=== PATIENT | male | born 1960 | race Caucasian/White ===

== ENCOUNTER → 2019-06-07 11:17 | Outpatient (BNVA) | payer BC, SELFPAY | PROVIDERS: PCP Nurse Practitioner Family; Referring Provider Nurse Practitioner Family; Visit Provider Specialist | DX: G56.03 Carpal tunnel syndrome, bilateral upper limbs (principal) | CPT/HCPCS: 95910 ==

== ENCOUNTER 2019-07-14 07:53 | Day surgery (SDC) | payer BC, SELFPAY ==
[2019-07-13 15:08] VITALS: BMI 27.6
[2019-07-14] VITALS (7 sets, daily range): BP systolic 113–138; BP diastolic 70–88; PULSE 61–89; RESP 10–18; TEMP 36.5–36.8; O2SAT 97–100
[2019-07-14] MEDS: sodium chloride 0.9% 1,000 ML 30 ML IV (08:18)
[2019-07-14 08:19] LABS: Glucose Point of Care 165 mg/dL (70-110)
--- NOTE | 2019-07-14 08:24 | ANES.PREANE2 ---
Pre-Anesthetic Assessment Pre-Anesthetic Assessment: Height/Weight: Height 1.83 m Weight 92.533 kg Preop Diagnosis: Left carpal and cubital tunnel Proposed Procedure: Operation Date: 07/14/19 09:20 Proposed Procedures p Carpal Tunnel Release [id number] G56.02 G56.22(Left) - Chava Delgadillo DO s [place] Nerve Decompression Verusus Transposition(Left) - Chava Delgadillo DO Last intake: Intake Last Liquid Date 07/13/19 Last Liquid Time 20:00 Last Solid Date 07/13/19 Last Solid Time 20:00 Social: Social History: Alcohol (occ) and Tobacco (chews) Exam: Pre-Anes Outpt Exam: alert, oriented x 3, clear to auscultation bilaterally and regular rate & rhythm Airway: Submandibular: WNL Cervical ROM: WNL MP: 1 Dentition: False (upper and lower) History/ROS: No significant history except as noted Pulmonary: Pulmonary: None reported CV/HEM: CV/HEM: HTN : : None reported Hepatic: Hepatic: None reported GI: GI: None reported Metabolic: Metabolic: DM and Hyperlipidemia Musc/skel: Musc/skel: OA/DJD Neuropsych: Neuropsych: Neuropathy (Left arm) Anesthetic Plan: ASA status: 3 Anesthesia: Anesthesia Evaluation and General Risk of > 500 ml blood loss (7ml/kg in children): No Meds/Allergies Current Medications: Current Medications Generic Name Dose Route Start Last Admin Trade Name Freq PRN Reason Stop Dose Admin Sodium Chloride 1,000 mls @ 30 ml s/hr 07/14/19 08:15 07/14/19 08:18 Sodium Chloride 0.9% IV 07/15/19 08:14 30 mls/hr .Q24H KEIRA Administration PFSH Anesthesia PFSH: Medical History Cholecystectomy planned (~2003) Diabetes Hyperlipemia Hypertension Family History Mother Diabetes Father Diabetes Denies family history of CAD (coronary artery disease) Clotting disorder Chronic kidney disease (CKD) Anesthesia complication Bleeding disorder Cancer Social History Smoking and tobacco status: former smoker Second hand smoke exposure: Yes Alcohol intake: former Household members: children Marital status: Single Data Anesthesia Other Labs: Laboratory Results - last 48 hr 07/14/19 08:15 POC Glucose 165 Cardiac Studies: No Data to Display
--- NOTE | 2019-07-14 09:06 | W.PM.OPSUD ---
Surgery/Procedure H&P Update DATE OF PROCEDURE: July 14, 2019 DATE H&P PERFORMED: 07/08/19 H&P UPDATE INFORMATION: I have reviewed H&P completed within last 30 days and No changes to prior documentation PREOP DIAGNOSIS: Left carpal and cubital tunnel PRIMARY INDICATION FOR PROCEDURE: as above PLANNED PROCEDURE: Operation Date: 07/14/19 09:20 Proposed Procedures p Carpal Tunnel Release [id number] G56.02 G56.22(Left) - DO luís Santiago [place] Nerve Decompression Verusus Transposition(Left) - Chava Delgadillo DO
--- NOTE | 2019-07-14 09:07 | P.OP_ITS ---
Operative Report Date of procedure: July 14, 2019 Pre-op Diagnosis: Left carpal and cubital tunnel Post-op diagnosis: same Procedure Done: Decompression left carpal tunnel Decompression left cubital tunnel Pathology: none sent Surgeon: Chava Delgadillo Anesthesia: General Estimated blood loss (mL): 5 Tourniquet time (min): 36 Tourniquet time: At 250 mmHg pressure Complications: No apparent complications Findings: Very thick palmar fascia and transverse carpal ligament with tight carpal tunnel Tight and thickened interested cubital tunnel. Following decompression no tendency of the ulnar nerve to subluxate from behind medial humeral epicondyle Condition: stable Disposition: PACU Brief History: 59-year-old white male with bilateral complaints of hand pain and numbness left greater than right. Clinical examination suggestive of bilateral carpal and cubital tunnel syndromes. Patient is undergone EMG and nerve conduction velocity studies that are consistent with bilateral carpal tunnel and cubital tunnel syndromes with slowing of the median and ulnar nerves at the wris t and elbow respectively. He is failed conservative therapy. He is brought in today for elective decompression of the left carpal tunnel and ulnar nerve at the elbow to be followed in a staged fashion later once he is recovered sufficiently to undergo right carpal tunnel decompression as well as right cubital tunnel decompression Procedure: 1.5 g Zinacef Patient identified. Surgical sites are signed. Surgical permit signed. Patient received 1.5 g of Zinacef IV for surgical prophylaxis. Patient was taken to the Operating Room. Patient was transferred to the Operating Room table. Patient is placed supine on the OR table.. Patient placed under general anesthesia without difficulty. Patient was then sterilely prepped and draped in usual fashion using a sterile tourniquet. A 4cm palmar incision was made. Dissection carried down through skin subcutaneous tissue. We incised the transverse carpal ligament. The transverse carpal ligament was undermined proximally. The wrist was extended and then using a pushing scissors technique, the proximal extent of the transverse carpal ligament was divided. We verified the release was complete. Using scissors technique dissection, we released the distal extent of the transverse carpal ligament and the deep layer of the palmar fascia to the level of the superficial palmar arch. The median nerve was identified as well as the recurrent branch that was preserved. No other pathology noted in the carpal tunnel. Once again, we verified the release was complete. The wound was irrigated with sterile saline containing Betadine and sterile saline containing antibiotic solution. Skin closure was performed with interrupted sutures of 4-0 nylon. Attention was turned to the medial aspect of the operative elbow. A 6 cm curvilinear incision was made centered between the olecranon process and the medial humeral epicondyle. Full-thickness skin flaps were made with a skin knife. Crossing veins were coagulated with electrocautery. Scissors dissection was used to deepen the incision. Self-retaining retractors were put into place. The brachial fascia was opened using careful scissors dissection and the underlying ulnar nerve identified. The brachial fascia was released for several centimeters proximal to the cubital tunnel. No extrinsic compression on the ulnar nerve was appreciated proximally passing a hemostat beneath the skin and above the ulnar nerve. Dissection was continued distally using careful scissors dissection being careful to preserve cutaneous nerves as possible. Dec ompression of the ulnar nerve is taken several centimeters distal to the area of maximal compression at the area of Cope's fascia. Using a hemostat distally there is no evidence of distal compression into the proximal forearm. A subtle hourglass deformity of the ulnar nerve was identified at the area of maximal compression at the beginning of Cope's fascia. The nerve was now entirely decompressed. The elbow was placed through a range of motion. There is no tendency for the decompressed ulnar nerve to subluxate from behind the medial humeral epicondyle. For this reason no anterior transposition was performed. The wound was irrigated with Betadine-containing saline solution and antibiotic containing saline solution. The wound was closed in layers using 4-0 nylon on skin. The 2 incisions were injected with a total of 20 mL of a one-to-one mixture of 1% lidocaine and half percent Marcaine with epinephrine for postoperative analgesia. Dressings were applied which included: triple antibiotic ointment, Telfa, 4 x 4s, sterile cast padding, followed by a 5 x 30 plaster sheets 12 sheets in thickness to create an above elbow splint which was overwrapped with 3 and 4-inch ERNESTO wraps. The tourniquet was deflated during application of dressings. Patient tolerated the procedure well. Patient was taken to the recovery room. All counts were correct.
[2019-07-14] MEDS: cefUROXime 1,500 MG in sodium chloride 0.9% (plus) 50 ML 100 MG IV (09:09)
[2019-07-14] MEDS: neomycin-poly-bacitracin oint 28 gm 1 APPLIC TOPICAL (10:04)
== END 2019-07-14 11:25 | disposition home or self-care (01) ==
PROVIDERS: PCP Nurse Practitioner Family; Visit Provider Orthopaedic Surgery
PROC: (CPT 64721; principal; 2019-07-14 09:00)
PROC: (CPT 64718; 2019-07-14 09:00)
DX: G56.02 Carpal tunnel syndrome, left upper limb (principal); G56.22 Lesion of ulnar nerve, left upper limb; I10 Essential (primary) hypertension; E78.5 Hyperlipidemia, unspecified; M19.90 Unspecified osteoarthritis, unspecified site; E11.40 Type 2 diabetes mellitus with diabetic neuropathy, unspecified; Z82.49 Family history of ischemic heart disease and other diseases of the circulatory system; Z83.3 Family history of diabetes mellitus; Z79.82 Long term (current) use of aspirin; Z87.891 Personal history of nicotine dependence
CPT/HCPCS: 64718; 64721; 12345; 36416; 82962; 96365; J0697; J1100; J1580; J2001; J2250; J2405; J2704; J3010; J3490; J7030

== ENCOUNTER 2019-07-20 10:48 | Outpatient (CLI) | payer BC, SELFPAY | END 2019-07-20 10:49 | disposition home or self-care (01) | LOC: SPT 10:48 | PROVIDERS: PCP Nurse Practitioner Family; Visit Provider Orthopaedic Surgery | DX: Z46.89 Encounter for fitting and adjustment of other specified devices (principal); G56.02 Carpal tunnel syndrome, left upper limb; Z98.890 Other specified postprocedural states | CPT/HCPCS: L3908 ==

== ENCOUNTER → 2024-02-17 10:51 | Outpatient (BNVA) | payer MEDICAID, SELFPAY | PROVIDERS: PCP Family Medicine; Visit Provider Family Medicine | DX: E11.9 Type 2 diabetes mellitus without complications (principal) | CPT/HCPCS: 80053; 80061; 82607; 83036; 83721; 84443 ==

== ENCOUNTER 2024-02-26 14:07 | Outpatient (CLI) | payer MEDICAID, SELFPAY ==
--- NOTE | 2024-02-26 14:30 | US_ITS ---
WS: [id number] ULTRASOUND SOFT TISSUES posterior LEFT neck mass. HISTORY: growingsoftball sized mass on upper mid-back, suspect lipoma COMPARISON: None available. TECHNIQUE: 2-D and color Doppler imaging is submitted. Ultrasound is directed over the posterior LEFT neck. There is an intermediate echogenicity mass displ acing the subcutaneous soft tissues and the fascia surrounding the muscles. Due to the large size of the mass it is incompletely visualized and included on this examination. This mass measures over a le ngth of 10.5 cm x 6.7 x 3.9 cm. No increased vascularity. US/US soft tissue/extremity [id number] IMPRESSION: Large intermediate signal mass along the posterior RIGHT neck. This is most con sistent with a lipoma. This mass is incompletely included due to its large size . If further evaluation is necessary MRI with and without contrast may be of be nefit.
== END 2024-02-26 14:08 | disposition home or self-care (01) ==
LOC: RAD 14:08
PROVIDERS: PCP Family Medicine; Visit Provider Family Medicine
DX: R22.2 Localized swelling, mass and lump, trunk (principal)
CPT/HCPCS: 76882

== ENCOUNTER 2024-03-22 08:48 | Day surgery (SDC) | payer MEDICAID, SELFPAY ==
[2024-03-22] VITALS (9 sets, daily range): BP systolic 99–136; BP diastolic 62–83; PULSE 57–91; RESP 16–18; TEMP 36.2–36.4; O2SAT 93–100; BMI 26.9
[2024-03-22] MEDS: sodium chloride 0.9% 1,000 ML 30 ML IV (10:05)
--- NOTE | 2024-03-22 10:48 | W.PM.OPSUD ---
Surgery/Procedure H&P Update DATE OF PROCEDURE: March 22, 2024 DATE H&P PERFORMED: 03/07/24 H&P UPDATE INFORMATION: I have reviewed H&P completed within last 30 days, I have examined patient prior to procedure and No changes to prior documentation PLANNED PROCEDURE: Operation Date: 03/22/24 11:10 Proposed Procedures p excision of posterior neck mass [id number], D17.9(Not Applicable) - Sahil Bustamante DO
--- NOTE | 2024-03-22 11:13 | ANES.PREANE2 ---
Pre-Anesthetic Assessment Height/Weight: Height 1.8 m Weight 87.543 kg Temp Pulse Resp BP Pulse Ox O2 Del Method 97.6 F 70 17 133/81 96 Room Air 03/22/24 09:31 03/22/24 09:31 03/22/24 09:31 03/22/24 09:31 03/22/24 09:31 03/22/24 09:31 Operation Date: 03/22/24 11:10 Proposed Procedures p excision of posterior neck mass [id number], D17.9(Not Applicable) - Sahil Bustamante DO Familial anesthetic complications: None Was Beta Tari taken within 24 hours: N/A Was Clonidine taken within 24 hours: N/A Last intake: Intake Last Liquid Date 03/21/24 Last Liquid Time 23:00 Last Solid Date 03/21/24 Last Solid Time 20:00 Social No alcohol and No tobacco Exam alert, oriented x 3, clear to auscultation bilaterally and regular rate & rhythm Airway Mallampati: Class III Dentition: false Metabolic Diabetes Mellitus and Hyperlipidemia Anesthetic Plan ASA status: 2 Anesthesia: General Risk of > 500 ml blood loss (7ml/kg in children): No Medications/Allergies Home Medications Medication Instructions Recorded Confirmed Last Taken Type aspirin 81 mg tablet,delayed 81 mg PO DAILY 07/08/19 03/21/24 03/21/24 History release (Adult Low Dose Aspirin) atorvastatin 40 mg tablet 40 mg PO DAILY #90 tabs 03/02/24 03/21/24 03/21/24 Rx metformin 500 mg tablet 1,000 mg (2 x 500 mg) PO BID #360 03/02/24 03/21/24 03/21/24 Rx tabs Allergies Allergy/AdvReac Type Severity Reaction Status Date / Time meperidine [From Demerol] Allergy Severe Rash Verified 03/07/24 15:28 Current Medications Generic Name Dose Route Start Last Admin Trade Name Freq PRN Reason Stop Dose Admin Sodium Chloride 1,000 mls @ 30 mls/hr 03/22/24 09:30 03/22/24 10:05 Sodium Chloride 0.9% IV 03/23/24 09:29 30 mls/hr .Q24H KEIRA Administration PFSH Anesthesia Medical History Peripheral neuropathy Smoker Hyperlipemia Diabetes Surgical History History of laparoscopic cholecystectomy History of carpal tunnel release left carpal tunnel release and ulnar nerve decompression DOS: 07-14-2019 Family History Mother Diabetes Stroke Father Diabetes Denies family history of CAD (coronary artery disease) Clotting disorder Chronic kidney disease (CKD) Anesthesia complication Bleeding disorder Cancer Social History Smoking and tobacco/nicotine status: former use of tobacco/nicotine Second hand smoke exposure: Yes Alcohol intake: former Substance/Drug Use: current Substance/Drug use frequency: Special occassions/opportunity only Household members: children Marital status: Single Number of children: 4 Number of grandchildren: 3 Current occupational status: retired 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
[2024-03-22] MEDS: ceFAZolin 2,000 mg SDV 2000 MG IVP (11:44)
--- NOTE | 2024-03-22 12:15 | PM.OP ---
Operative Report Date of procedure: March 22, 2024 Pre-op diagnosis: Subcutaneous mass posterior neck Post-op diagnosis: same Procedure done: Excision of 16 cm subcutaneous mass posterior neck Implants: None Specimens removed/disposition: Subcutaneous mass Surgeon: Sahil Bustamante DO Anesthesia: General and Local Estimated blood loss (mL): 5 Complications: None apparent Brief History: This is a very pleasant 63-year-old gentleman who presented my office with an enlarging and painful subcutaneous mass of his posterior neck/upper back. He desired excision. There was some benefits were explained and documented. Procedure: Patient was wheeled to the operative room and placed on the OR table in the supine position. General endotracheal ovation was achieved by department anesthesia. Patient was then placed into the left lateral decubitus position. The posterior neck and back were inspected prepped and draped in usual sterile fashion. Time was performed. All present were in agreement. 2% lidocaine with epinephrine was used to anesthetize the skin overlying the subcutaneous mass. A 7 cm transverse incision was made on the upper back, over the mass. A septated and lobular fatty mass was encountered. Alveolar tissue was broken with electrocautery. All septations and components of the fatty mass were removed. Mass measured 16 cm in greatest dimension. Hemostasis was achieved electrocautery. Wound was then washed out with normal saline. Skin was closed with 2-0 and 3-0 nylon in a simple interrupted fashion. Sterile dressing was applied. Patient tolerated procedure well.
[2024-03-22] MEDS: lidocaine-epi 2% PF 1:200,000 20 mL SDV INJECTION (12:16)
[2024-03-22] MEDS: neomycin-poly-bacitracin oint 28 gm 1 APPLIC TOPICAL (12:25)
--- NOTE | 2024-03-22 13:35 | ANE.PACU2 ---
Inpatient post-anesthesia follow up: Airway intact: Yes Vital signs: Temperature 97.2 F Pulse Rate 57 Respiratory Rate 18 Blood Pressure 108/65 Pulse Oximetry 97 Oxygen Delivery Me thod Room Air Oxygen Flow Rate Fraction of Inspir ed Oxygen Hydration adequate: Yes Nausea and vomiting: No Pain level: 1 Mental status: Baseline
[2024-03-22 13:48] LABS: Glucose Point of Care 259 mg/dL (70-110)
== END 2024-03-22 13:35 | disposition home or self-care (01) ==
PROVIDERS: PCP Family Medicine; Visit Provider Surgery
PROC: (CPT 11426; principal; 2024-03-22 11:10)
DX: D17.0 Benign lipomatous neoplasm of skin and subcutaneous tissue of head, face and neck (principal); E78.5 Hyperlipidemia, unspecified; Z79.82 Long term (current) use of aspirin; E11.42 Type 2 diabetes mellitus with diabetic polyneuropathy; Z87.891 Personal history of nicotine dependence
CPT/HCPCS: 11426; 36416; 82962; 88307; J0690; J1100; J2250; J2371; J2405; J2704; J2710; J3010; J3490; J7030

== ENCOUNTER → 2024-06-13 10:36 | Outpatient (BNVA) | payer MEDICAID, SELFPAY | PROVIDERS: PCP Family Medicine; Visit Provider Family Medicine | DX: E11.9 Type 2 diabetes mellitus without complications (principal); E78.5 Hyperlipidemia, unspecified | CPT/HCPCS: 80061; 83036 ==

== ENCOUNTER → 2024-09-12 08:19 | Outpatient (BNVA) | payer MEDICAID, SELFPAY | PROVIDERS: PCP Family Medicine; Visit Provider Family Medicine | DX: E11.9 Type 2 diabetes mellitus without complications (principal); E78.5 Hyperlipidemia, unspecified | CPT/HCPCS: 80053; 80061; 82607; 83036; 83721 ==

== ENCOUNTER → 2025-01-16 10:46 | Outpatient (BNVA) | payer MEDICAID, SELFPAY | PROVIDERS: PCP Family Medicine; Visit Provider Family Medicine | DX: E11.9 Type 2 diabetes mellitus without complications (principal) | CPT/HCPCS: 80053; 80061; 82043; 82607; 83036 ==